=== PATIENT | female | born 1975 | race Two or more races ===

== ENCOUNTER 2017-05-16 16:39 | Emergency (ER) | payer OTHER ==
--- NOTE | 2017-05-16 18:07 | RAD ---
INDICATION: Possible . COMPARISON: None TECHNIQUE: Transvaginal scans were performed. FINDINGS: There is no evidence of an intrauterine gestation and therefore ectopic is not excluded if the patient is . There is scant free fluid. There is no adnexal mass. The right ovary measures 3.1 x 2.5 a 2.0 cm left 4.1 x 2.4 x 3.4 cm. There is a presumed involuting and/or hemorrhagic left ovarian cyst measuring 2.8 cm IMPRESSION: NO INTRAUTERINE GESTATION AND THEREFORE ECTOPIC IS NOT EXCLUDED IN THE SETTING OF OF A POSITIVE TEST
[2017-05-16 19:49] LABS: Hematocrit 36 % (35-47); Mean Corpuscular HGB Conc 34 g/dl (31-36); Mean Corpuscular Hemoglobin 32 pg (27-31); Mean Corpuscular Volume 96 fL (80-97); Mean Platelet Volume 8 um3 (7.4-10.4); Red Blood Count 3.73 10^6/ul (4.0-5.4); Red Cell Distribution Width 12 % (10.5-15)
[2017-05-16 20:22] LABS: ALT 14 U/L (7-52); AST 13 U/L (13-39); Alkaline Phosphatase 26 U/L (34-104); Anion Gap 5 mmol/L (2-11); BUN/Creatinine Ratio 9.5 (8-20); Blood Urea Nitrogen 6 mg/dL (6-24); C Reactive Protein < 1.00 mg/L (< 5.00); CO2 Carbon Dioxide 26 mmol/L (22-32); Chloride 106 mmol/L (101-111); EGFR African American 135.3 (>60); EGFR Non-African American 105.2 (>60); Globulin 2.7 g/dL (2-4); Glucose 98 mg/dL (70-100); Sodium 137 mmol/L (133-145); Total Protein 6.7 g/dL (6.4-8.9)
[2017-05-16 20:28] LABS: Urine Bacteria 1+ (Absent); Urine Bilirubin Negative (Negative); Urine Glucose Negative (Negative); Urine Nitrite Negative (Negative)
[2017-05-16 20:45] LABS: TSH (Thyroid Stimulating Horm) 1.33 mcIU/mL (0.34-5.60)
--- NOTE | 2017-05-16 20:49 | ED ---
Venkat Kingston Rebecca, scribed for Ricky Rubin MD on 05/16/17 at 1919 . - HPI Summary HPI Summary: Pt is a 41 y/o F who is suspected to be 7 weeks who presents to ED c/o vaginal bleeding. Last night, she experienced a slight amount of bleeding which resolved. This morning, the bleeding returned, heavier than last night, described as "the first day of a period." Sx aggravated and alleviated by nothing. Additionally notes a slight subjective fever and mild abdominal pain. Denies dysuria. LNMP was March 29 so she expects to be about 7 weeks and has an [facility] appointment on May 31. A1 - previous miscarriage. Blood type is AB positive. - History of Current Complaint Chief Complaint: EDVaginalBleeding Stated Complaint: VAGINAL BLEEDING/7 WEEKS Time Seen by Provider: 05/16/17 19:08 Hx Obtained From: Patient Chief Complaint: Vaginal Bleeding Onset/Duration: Started Days Ago - Last night, Still Present Current Severity: Moderate Pain Intensity: 5 Aggravating Factors: Nothing, Other: Associated Signs and Symptoms: Positive: Vaginal Bleeding or Discharge - Bleeding PMH/Surg Hx/FS Hx/Imm Hx Endocrine/Hematology History: Denies: Hx Diabetes Cardiovascular History: Denies: Hx Coronary Artery Disease, Hx Hypertension Infectious Disease History: No Infectious Disease History: Denies: Traveled Outside the [place] in Last 30 Days - Family History Known Family History: Negative: Cardiac Disease, Hypertension - Social History Alcohol Use: None Substance Use Type: Reports: None Smoking Status (MU): Never Smoked Tobacco Review of Systems Positive: Fever - slight Positive: Abdominal Pain - mild Positive: other - Vaginal bleeding. Negative: dysuria All Other Systems Reviewed And Are Negative: Yes Physical Exam - Summary Physical Exam Summary: General: well-appearing, no pain distress Skin: warm, color reflects adequate perfusion, dry Head: normal Eyes: EOMI, SOILA ENT: normal Neck: supple, nontender Respiratory: CTA, breath sounds present Cardiovascular: RRR Abdomen: soft, nontender Bowel: present Musculoskeletal: normal, strength/ROM intact Neurological: normal, sensory/motor intact, A&O x3 Psychological: affect/mood appropriate - Physical Exam Triage Information Reviewed: Yes Vital Signs On Initial Exam: Initial Vitals Temp Pulse Resp BP Pulse Ox 99 F 80 17 125/73 100 05/16/17 16:44 05/16/17 16:44 05/16/17 16:44 05/16/17 16:44 05/16/17 16:44 Vital Signs Reviewed: Yes Diagnostics - Vital Signs Vital Signs Temp Pulse Resp BP Pulse Ox 05/16/17 16:44 99 F 80 17 125/73 100 - Laboratory Lab Results: Lab Results 05/16/17 05/16/17 05/16/17 Range/Units 19:39 19:39 19:39 WBC (3.5-10.8) 10^3/ul RBC (4.0-5.4) 10^6/ul Hgb (12.0-16.0) g/dl Hct (35-47) % MCV (80-97) fL MCH (27-31) pg MCHC (31-36) g/dl RDW (10.5-15) % Plt Count (150-450) 10^3/ul MPV (7.4-10.4) um3 Neut % (Auto) (38-83) % Lymph % (Auto) (25-47) % Wilkinson % (Auto) (1-9) % Eos % (Auto) (0-6) % Baso % (Auto) (0-2) % Absolute Neuts (auto) (1.5-7.7) 10^3/ul Absolute Lymphs (auto) (1.0-4.8) 10^3/ul Absolute Monos (auto) (0-0.8) 10^3/ul Absolute Eos (auto) (0-0.6) 10^3/ul Absolute Basos (auto) (0-0.2) 10^3/ul Absolute Nucleated RBC 10^3/ul Nucleated RBC % INR (Anticoag Therapy) 0.99 (0.89-1.11) APTT 30.5 (26.0-36.3) seconds Sodium 137 (133-145) mmol/L Potassium 4.0 (3.5-5.0) mmol/L Chloride 106 (101-111) mmol/L Carbon Dioxide 26 (22-32) mmol/L Anion Gap 5 (2-11) mmol/L BUN 6 (6-24) mg/dL Creatinine 0.63 (0.51-0.95) mg/dL Est GFR ( Amer) 135.3 (>60) Est GFR (Non-Af Amer) 105.2 (>60) BUN/Creatinine Ratio 9.5 (8-20) Glucose 98 (70-100) mg/dL Calcium 9.0 (8.6-10.3) mg/dL Total Bilirubin 0.50 (0.2-1.0) mg/dL AST 13 (13-39) U/L ALT 14 (7-52) U/L Alkaline Phosphatase 26 L (34-104) U/L C-Reactive Protein < 1.00 (< 5.00) mg/L Total Protein 6.7 (6.4-8.9) g/dL Albumin 4.0 (3.2-5.2) g/dL Globulin 2.7 (2-4) g/dL Albumin/Globulin Ratio 1.5 (1-3) TSH Pending Beta HCG, Quant 206.75 mIU/mL Urine Color Urine Appearance Urine pH (5-9) Ur Specific [place] (1.010-1.030) Urine Protein (Negative) Urine Ketones (Negative) Urine Blood (Negative) Urine Nitrate (Negative) Urine Bilirubin (Negative) Urine Urobilinogen (Negative) Ur Leukocyte Esterase (Negative) Urine WBC (Auto) (Absent) Urine RBC (Auto) (Absent) Ur Squamous Epith Cells (Absent) Urine Bacteria (Absent) Urine Glucose (Negative) Blood Type AB Positive 05/16/17 05/16/17 Range/Units 19:39 19:54 WBC 5.0 (3.5-10.8) 10^3/ul RBC 3.73 L (4.0-5.4) 10^6/ul Hgb 12.0 (12.0-16.0) g/dl Hct 36 (35-47) % MCV 96 (80-97) fL MCH 32 H (27-31) pg MCHC 34 (31-36) g/dl RDW 12 (10.5-15) % Plt Count 189 (150-450) 10^3/ul MPV 8 (7.4-10.4) um3 Neut % (Auto) 62.5 (38-83) % Lymph % (Auto) 27.9 (25-47) % Wilkinson % (Auto) 7.1 (1-9) % Eos % (Auto) 2.0 (0-6) % Baso % (Auto) 0.5 (0-2) % Absolute Neuts (auto) 3.1 (1.5-7.7) 10^3/ul Absolute Lymphs (auto) 1.4 (1.0-4.8) 10^3/ul Absolute Monos (auto) 0.4 (0-0.8) 10^3/ul Absolute Eos (auto) 0.1 (0-0.6) 10^3/ul Absolute Basos (auto) 0 (0-0.2) 10^3/ul Absolute Nucleated RBC 0 10^3/ul Nucleated RBC % 0 INR (Anticoag Therapy) (0.89-1.11) APTT (26.0-36.3) seconds Sodium (133-145) mmol/L Potassium (3.5-5.0) mmol/L Chloride (101-111) mmol/L Carbon Dioxide (22-32) mmol/L Anion Gap (2-11) mmol/L BUN (6-24) mg/dL Creatinine (0.51-0.95) mg/dL Est GFR ( Amer) (>60) Est GFR (Non-Af Amer) (>60) BUN/Creatinine Ratio (8-20) Glucose (70-100) mg/dL Calcium (8.6-10.3) mg/dL Total Bilirubin (0.2-1.0) mg/dL AST (13-39) U/L ALT (7-52) U/L Alkaline Phosphatase (34-104) U/L C-Reactive Protein (< 5.00) mg/L Total Protein (6.4-8.9) g/dL Albumin (3.2-5.2) g/dL Globulin (2-4) g/dL Albumin/Globulin Ratio (1-3) TSH Beta HCG, Quant mIU/mL Urine Color Straw Urine Appearance Clear Urine pH 7.0 (5-9) Ur Specific [place] 1.005 L (1.010-1.030) Urine Protein Negative (Negative) Urine Ketones Negative (Negative) Urine Blood 2+ H (Negative) Urine Nitrate Negative (Negative) Urine Bilirubin Negative (Negative) Urine Urobilinogen Negative (Negative) Ur Leukocyte Esterase Negative (Negative) Urine WBC (Auto) Trace(0-5/hpf) (Absent) Urine RBC (Auto) Trace(0-2/hpf) (Absent) Ur Squamous Epith Cells Present H (Absent) Urine Bacteria 1+ H (Absent) Urine Glucose Negative (Negative) Blood Type Result Diagrams: 05/16/17 19:39 05/16/17 19:39 Lab Statement: Any lab studies that have been ordered have been reviewed, and results considered in the medical decision making process. - Ultrasound No standard instances Ultrasound Interpretation: No Acute Changes - Transvaginal US: NO INTRAUTERINE GESTATION AND THEREFORE ECTOPIC IS NOT EXCLUDED IN THE SETTING OF OF A POSITIVE TEST ED physician reviewed radiology report and agrees. Ultrasound Interpretation Completed By: Radiologist Re-Evaluation - Re-Evaluation First Eval Re-Evaluation Time: 20:40 Comment: Explained everything to the pt. She is currently not experinencing any pain and was advised to follow up with OB in 2 days. Course/Dx - Course Course Of Treatment: DISCUSSED RESULTS WITH PATIENT. NO IUP WITH LOW BHCG QUANT SO, DDX EARLY PREG, ECTOPIC, MISSED AB. PATIENT HAS SCHEDULED APPOINTMENT WITH [facility] ALREADY. SHE WILL CONTACT THEM TOMORROW FOR REPEAT HCG IN 2-3 DAYS. RETURN TO ED IF WORSE. THIS WAS ALL DISCUSSED WITH PATIENT AND . Assessment/Plan: BP noted and advised to follow up with PCP. Medications reviewed. - Diagnoses Provider Diagnoses: Threatened miscarriage Discharge - Discharge Plan Condition: Stable Disposition: HOME Patient Education Materials: Threatened Miscarriage (ED) Referrals: [facility] [Provider Group] Additional Instructions: FOLLOW UP WITH [facility], [phone]. CALL THEM TOMORROW, 05/17/17, IN THE MORNING TO ARRANGE FOLLOW UP WITH THEM ON OR 05/19/17 FOR A REPEAT QUANTITATIVE HCG. RETURN TO THE EMERGENCY DEPARTMENT FOR ANY WORSENING OF YOUR CONDITION; PAIN, FEVER, EXCESSIVE BLEEDING, YOU FEEL LIKE YOU ARE GOING TO PASS OUT OR QUESTIONS OR CONCERNS. The documentation as recorded by the Venkat adkins Rebecca accurately reflects the service I personally performed and the decisions made by me, Ricky Rubin MD.
[2017-05-16 21:15] VITALS: BP 119/69
== END 2017-05-16 21:12 | disposition home or self-care (01) ==
LOC: ED 16:39
DX: O20.0 Threatened abortion (principal); Z3A.01 Less than 8 weeks gestation of pregnancy
CPT/HCPCS: 36415; 76817; 80053; 81003; 81015; 84443; 84702; 85025; 85610; 85730; 86140; 86900; 86901; 87086; 99283